=== PATIENT | male | born 1955 | race Caucasian/White ===

== ENCOUNTER 2020-01-08 19:27 | Emergency (ER) | payer OTHER ==
[2020-01-08] MEDS ORDERED: Ondansetron 4 MG Tab.DIS PO ONE (20:01)
[2020-01-08] MEDS ORDERED: HYDROmorphone 0.5 MG/0.5 ML Syringe IM ONE (20:01)
--- NOTE | 2020-01-08 20:07 | EDM.PDOC ---
ED HPI GENERAL MEDICAL PROBLEM - General Chief Complaint: Laceration Stated Complaint: HAND LACERATION Time Seen by Provider: 01/08/20 19:36 Source of Information: Reports: Patient, RN Notes Reviewed History Limitations: Reports: No Limitations - History of Present Illness INITIAL COMMENTS - FREE TEXT/NARRATIVE: Patient is a 64-year-old male who presents to the ED for the evaluation of his left hand laceration. Patient states that shortly prior to arrival to the ER, he was using a grinding wheel at home, cutting some metal brackets and he ended up cutting the posterior portion of his left hand. Between the second and third digits. Patient still has full range of motion on the second and third digits, denies any numbness and tingling distal to the injury. This is about a 6 cm laceration, somewhat dirty due to it being a grinding wheel, and it is minimally bleeding at the time of triage. Patient denies being on any blood thinners, and states he did not take any sort of medications for the pain, he came directly to the ER for management as he realized how bad of a cut it was. Patient states he is up-to-date on his tetanus vaccination. Left Hand Pain Score (Numeric/FACES): 8 - Related Data Allergies Allergy/AdvReac Type Severity Reaction Status Date / Time No Known Allergies Allergy Verified 01/08/20 19:47 Home Meds: Home Meds cephALEXin [Cephalexin] 500 mg PO BID #14 capsule 01/08/20 [Rx] Past Medical History Cardiovascular History: Reports: High Cholesterol, Hypertension - Past Surgical History HEENT Surgical History: Reports: Tonsillectomy Social & Family History - Tobacco Use Smoking Status *Q: Current Every Day Smoker Years of Tobacco use: 40 Packs/Tins Daily: 1 - Caffeine Use Caffeine Use: Reports: Coffee - Recreational Drug Use Recreational Drug Use: No ED ROS GENERAL - Review of Systems Review Of Systems: Comprehensive ROS is negative, except as noted in HPI. ED EXAM, SKIN/RASH Exam: See Below Exam Limited By: No Limitations General Appearance: Alert, WD/WN, No Apparent Distress Eye Exam: Bilateral Eye: EOMI, Normal Inspection, PERRL Ears: Normal External Exam Nose: Normal Inspection Throat/Mouth: Normal Inspection Head: Atraumatic, Normocephalic Neck: Normal Inspection Respiratory/Chest: No Respiratory Distress, Lungs Clear, Normal Breath Sounds, No Accessory Muscle Use, Chest Non-Tender Cardiovascular: Normal Peripheral Pulses, Regular Rate, Rhythm, No Murmur Peripheral Pulses: 3+: Radial (L), Radial (R) Extremities: Normal Range of Motion, Normal Capillary Refill Neurological: Alert, Oriented, Normal Cognition, No Motor/Sensory Deficits Psychiatric: Normal Affect, Normal Mood Skin: Warm, Dry, Normal Color, No Rash, Wound/Incision (6 cm jagged wound to posterior left hand surface, slightly dirty) ED SKIN PROCEDURES - Laceration/Wound Repair Left Posterior Hand Appearance: Subcutaneous, Mildly Contaminated Distal NVT: Neuro & Vascular Intact, No Tendon Injury Anesthetic Type: Local Local Anesthesia - Lidocaine (Xylocaine): 1% Plain Local Anesthesia - Bupivicaine (Marcaine): 0.5% Plain Local Anesthetic Volume: 5cc Skin Prep: Chlorhexidine (Hibiciens), Saline Exploration/Debridement/Repair: Wound Explored, In a Bloodless Field, Explored to Base, Minimally Undermined, Foreign Material Removed Closed with: Sutures Lac/Wound length In cm: 6 Suture Size: 4-0 # of Sutures: 16 Suture Type: Prolene, Interrupted, Simple Sterile Dressing Applied: Nurse Tetanus Status Addressed: Yes Complications: No Course - Vital Signs Last Recorded V/S: Last Vital Signs Temp 97.5 F 01/08/20 19:43 Pulse 70 01/08/20 19:43 Resp 16 01/08/20 19:43 BP 143/88 H 01/08/20 19:43 Pulse Ox 98 01/08/20 19:43 - Orders/Labs/Meds Orders: Active Orders 24 hr Category Date Time Status Hand Comp Min 3V Lt [CR] Stat Exams 01/08/20 20:00 Taken Meds: Medications Discontinued Medications Generic Name Dose Route Start Last Admin Trade Name Freq PRN Reason Stop Dose Admin Bupivacaine HCl 10 ml 01/08/20 20:30 01/08/20 20:37 Sensorcaine-Mpf 0.5% INJECT 01/08/20 20:31 10 ml ONETIME ONE Administration Cephalexin 500 mg 01/08/20 20:39 Keflex PO 01/08/20 20:40 ONETIME ONE Hydromorphone HCl 0.5 mg 01/08/20 20:01 01/08/20 20:06 Dilaudid IM 01/08/20 20:02 0.5 mg ONETIME ONE Administration Lidocaine HCl 10 ml 01/08/20 20:30 01/08/20 20:37 Xylocaine 1% INJECT 01/08/20 20:31 10 ml ONETIME ONE Administration Ondansetron HCl 4 mg 01/08/20 20:01 01/08/20 20:07 Zofran Odt PO 01/08/20 20:02 4 mg ONETIME ONE Administration - Re-Assessments/Exams Free Text/Narrative Re-Assessment/Exam: 01/08/20 21:32 Patient did have a hand x-ray as well to rule out bony abnormalities as result of the pigment grinder to the hand, however there is some foreign debris noted on x-ray , but no bony abnormality is appreciated by myself or Dr. Ferguson. Much of the debris was cleaned out at the time of laceration repair. Departure - Departure Time of Disposition: 21:28 Disposition: Home, Self-Care 01 Condition: Good Clinical Impression: Laceration of hand Qualifiers: Encounter type: initial encounter Foreign body presence: with foreign body Laterality: left Qualified Code(s): S61.422A - Laceration with foreign body of left hand, initial encounter - Discharge Information *PRESCRIPTION DRUG MONITORING PROGRAM REVIEWED*: No *COPY OF PRESCRIPTION DRUG MONITORING REPORT IN PATIENT OSVALDO: No Prescriptions: cephALEXin [Cephalexin] 500 mg PO BID #14 capsule Instructions: Sutures, Mcken[place], or Adhesive Wound Closure, [id number] Referrals: PCP,None [Ordering Only Provider] - Forms: ED Department Discharge Additional Instructions: You have been evaluated in the ED for your laceration. Sutures will need to stay in for 10-14 days (01/17-01/21) You may return to the ED or any clinic for removal. Please keep this area clean and dry, you may cleanse with regular soap and water. No vigorous scrubbing. Watch out for signs of infection like increased redness, swelling, pain at the laceration site, or if you should develop any fevers or chills. As the wound itself was inflicted by a corrosion prevention metal sprayer. You will be placed on antibiotics, the first dose given at today's ER visit. You will need to go to any pharmacy and [employer] store tomorrow to pick up and delivery driver the rest of the antibiotics and take as prescribed. Please be careful when gripping things with his hand, as to not pop open the sutures, recommend if you have to wear work gloves, that you keep the area bandaged and try to keep it as clean and dry as possible. Please return to ED if your symptoms change or worsen. Sepsis Event Note (ED) - Evaluation Sepsis Screening Result: No Definite Risk - Focused Exam Vital Signs: Vital Signs Temp Pulse Resp BP Pulse Ox 01/08/20 19:43 97.5 F 70 16 143/88 H 98 - My Orders Last 24 Hours: My Active Orders 01/08/20 20:00 Hand Comp Min 3V Lt [CR] Stat - Assessment/Plan Last 24 Hours: My Active Orders 01/08/20 20:00 Hand Comp Min 3V Lt [CR] Stat
[2020-01-08] MEDS ORDERED: Bupivacaine 0.5% 10 ML SDV INJECT ONE (20:30)
[2020-01-08] MEDS ORDERED: Lidocaine 1% 10 ML MDV INJECT ONE (20:30)
[2020-01-08] MEDS ORDERED: Cephalexin 500 MG Cap PO ONE (20:39)
--- NOTE | 2020-01-09 08:14 | CR ---
Left hand: 4 views of left hand were obtained. Comparison: No prior hand exam. Mild degenerative change is noted within the DIP joints as well as within the 2nd MCP joint. Cysts are noted within the capitate bone as well as within the base of the navicular bone. Cysts are noted within the distal phalanx of the thumb. Small soft tissue radiopacities are noted dorsally. No acute fracture or dislocation is seen. Impression: 1. Findings believed to be nonacute as noted above. 2. Soft tissue radiopacities seen posteriorly. 3. No acute bony abnormality is appreciated. Diagnostic code #2 This report was dictated in MDT
== END 2020-01-08 22:02 | disposition home or self-care (01) ==
LOC: JD.ED 19:27
DX: S61.422A Laceration with foreign body of left hand, initial encounter (principal); I10 Essential (primary) hypertension; F17.210 Nicotine dependence, cigarettes, uncomplicated; W31.89XA Contact with other specified machinery, initial encounter
CPT/HCPCS: 12002; 12042; 73130-26-LT; 73130-LT; 96372; 99283; 99283-25; A9270-GY; J1170; J2001; J3490

== ENCOUNTER 2020-01-23 11:04 | Emergency (ER) | payer OTHER | END 2020-01-23 11:25 | LOC: JD.ED 11:04 | DX: S61.412D Laceration without foreign body of left hand, subsequent encounter (principal); W26.8XXD Contact with other sharp object(s), not elsewhere classified, subsequent encounter | CPT/HCPCS: 99281 ==